=== PATIENT | female | born 1980 | race Caucasian/White ===

== ENCOUNTER → 2025-05-23 | Outpatient (CLI) | payer OTHER, SELFPAY ==
--- OUTSIDE RECORDS SUMMARY | 2025-05-23 21:40 | XMS RPT_ITS | CCD ---
Author Organization [facility] Care Team Providers Care Neon Sign Mechanic Name Role Phone Dimas Grimm Unavailable Unavailable UNKNOWN, PROVIDER Unavailable Unavailable You Khan Unavailable Unavailable Ayan Sena Unavailable Unavailable UNKNOWN, PROVIDER Unavailable Unavailable You Khan Unavailable Unavailable ZACK COOLEY Unavailable Unavailable TAMEKA SARAVIA Unavailable Unavailable NO PRIMARY CARE, Unavailable Unavailable MILENA WHITE Unavailable Unajordyi EVANS Nunez Unavailable Unavailable NO PRIMARY CARE, Unavailable Unavailable [facility] Primary Care Provider Unav ailable TAMEKA SARAVIA Attending Unavailable TAMEKA SARAVIA Referring Unavailable INC, [facility] Primary Care Unavailable YOU KHAN Attending Unavailable You Khan DO Primary Care Provider NO FAMILY PHYSICIAN, 837 Primary Care Unavail able Jasper VALENZUELA, Sandhya Attending Physician Medications Current Medications Medication Drug Class(es) Dates Sig (Normalized) Sig (Original) zolpidem tartrate 5 mg oral tablet (7 sources) gamma-Aminobutyri c Acid-ergic Agonist Start: 04-22-2025 End: 04-22-2025 take 1 tablet by mouth at bedtime Zolpidem 5 mg tablet Active 5 mg PO AT BEDTIME 10 April 22, 2025 4:03pm insomnia Complies with drug therapy Start: 08-01-2022 take 1 tablet by once daily for sleep zolpidem (Ambien) 5 MG tablet Indications: Primary insomnia take 1 tablet by mouth NIGHTLY if needed FOR SLEEP FOR UP TO 10 DAYS 10 tablet 0 08/01/2022 Active Start: 09-30-2021 End: 07-26-2022 take 1 tablet by mouth once daily for sleep zolpidem (Ambien) 5 MG tablet Indications: Primary insomnia take 1 tablet by mouth NIGHTLY if needed FOR SLEEP FOR UP TO 10 DAYS Strength: 5 mg 10 tablet 0 07/26/2022 07/26/2022 Discontinued (Reorder) Completed/Discontinued Medications Medication Drug Class(es) Dates Sig (Normalized) Sig (Original) citalopram 10 mg oral tablet (13 sources) Serotonin Reuptake Inhibitor Start: 01-05-2024 End: 04-22-2025 take 1 tablet by mouth once daily Citalopram 20 mg tablet Active 20 mg PO DAILY 30 April 22, 2025 4:03pm Complies with drug therapy Start: 01-05-2024 End: 04-22-2025 take 1 tablet by mouth once daily Citalopram 10 mg tablet Discontinued 10 mg PO DAILY 90 January 05, 2024 3:57pm April 22, 2025 3:59pm Start: 05-11-2022 End: 07-26-2022 take 1 tablet by mouth once daily citalopram (CeleXA) 20 MG tablet Take 1 tablet (20 mg) by mouth daily. 90 tablet 1 07/26/2022 Active Start: 05-11-2022 End: 07-26-2022 take 1 tablet by mouth once daily citalopram (CeleXA) 10 MG tablet Take 1 tablet (10 mg) by mouth daily. 90 tablet 1 07/26/2022 Active Problems Active Problems Problem Classification Problem Date Documented Da te Episodic/Chronic Anxiety disorders (6 sources) Anxiety; Translations: [Anxiety disorder, unspecified] Onset: 02-05-2021 04-25-2022 Chronic Miscellaneous mental health disorders (6 sources) Primary insomnia; Translations: [Primary insomnia] Onset: 2017 04-25-2022 Chronic Other ear and sense organ disorders (2 sources) Unspecified hearing loss, unspecified ear; Translations: [Unspecified hearing loss, unspecified ear] Onset: 08-16-2017 Chronic Other screening for suspected conditions (not mental disorders or infectious disease) (4 sources) Patient encounter status; Translations: [Encounter for screening mammogram for malignant neoplasm of breast] Onset: 05-19-2023 05-19-2023 Episodic Residual codes; unclassified (1 source) Insomnia; Translations: [Insomnia, unspecified] 04-22-2025 Episodic Past or Other Problems Problem Classification Problem Date Documented Da te Episodic/Chronic Other ear and sense organ disorders (6 sources) Tinnitus, unspecified ear; Translations: [Tinnitus, right ear] Onset: 08-06-2017 Episodic Other infections; including parasitic (3 sources) History of glandular fever; Translations: [Personal history of other infectious and parasitic diseases] Onset: 01-30-2018 04-25-2022 Episodic Otitis media and related conditions (2 sources) Acute serous otitis media, right ear; Translations: [Acute serous otitis media, right ear] Onset: 08-06-2017 Episodic Residual codes; unclassified (4 sources) Family history of cancer of colon; Translations: [Family history of malignant neoplasm of digestive organs] Onset: 02-05-2021 04-25-2022 Episodic Residual codes; unclassified (3 sources) Family history of disorder; Translations: [Family history of epilepsy and other diseases of the nervous system] Onset: 08-17-2018 04-25-2022 Episodic Results Test Name Value Interpretation Reference Range Facility [facility] Physician Progress No romel 05-03-2025 [facility] Physician Progress Note LESA HINOJOSA :1980 Registration Date:04/29/2025 Assessment/Plan This Visit Diagnosis 1. Abnormal uterine bleeding (AUB)/(N93.9: Abnormal uterine and vaginal bleeding, unspecified) aygestin started use annual as followup Ordered: [facility] Follow - Up Appt [facility], 05/03/2025 22:25:00 EDT, 2 months Annual/ followup 2. Pelvic pressure in female/(R10.20: Pelvic and perineal pain unspecified side) Ordered: [facility] Follow - Up Appt [facility], 05/03/2025 22:25:00 EDT, 2 months Annual/ followup rectal pressure/bloat she is making appointment for GI Medication Reconciliation What How Much When Why Instructions New norethindrone (Aygestin 5 mg oral tablet) 1 Tabs Oral DAILY Abnormal uterine bleeding (AUB) Refills: 1 Ordering Physician: TAMEKA TORO Pickup at [facility]/pharmacy #[id number] Unchanged betamethasone-clotrimaz ole topical (Lotrisone 1%-0.05% topical cream) 1 Application Topical TWICE A DAY Vulvar irritation Ordering Physician: TAMEKA TORO Unchanged citalopram (citalopram 20 mg oral tablet) Ordering Physician: YOU KHAN Unchanged multivitamin 1 Tabs Oral DAILY Pharmacy Information [id number]: [address] [place], [place] [id number] [phone] Chief Complaint u/s f/u for pelvic pressure and AUB lmp: 04/12/25 happening since December cramping with period History of Present Illness 44 yo hasn't been seen in 2 years last reported no problems called with pelvic pressure and AUB she reports normal cycles just sometime brown and sometimes red started in December random cramping throughout cycle and at times rectal pressure- no rectal bleeding she feels bloating she reports at times heavy no diet or med changes cramping on and going normal pelvic u/s today using condoms start aygestin on day #3 r structure is normal but sometimes it is function will try to pause cycle/ovulation and see if better she is aware she needs a colonoscopy hcg urine- neg Physical Exam Vitals & Measurements BP: 120/70 HT: 168 cm WT: 76 kg BMI: 26.93 LMP: 04/12/2025 00:00 EDT Depression Screening Scores Initial Depression Screen Score: 0 (04/29/25 15:20:00) Fall Risk Assessment Is the patient ambulatory (mobile): Yes (04/29/25 15:20:00) Have you had a fall within the past: No (04/29/25 15:20:00) Have you had 2 or more falls in the past: No (04/29/25 15:20:00) 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 Aragon Comment: Bed rest and GTN Problem List/Past Medical History Ongoing No chronic problems Historical Procedure/Surgical History Last pap-neg w/neg HPV: 11/28/19 Medications betamethasone-clotrimaz ole topical(Lotrisone 1%-0.05% topical cream), 1 rebeka, Topical, BID citalopram(citalopram 20 mg oral tablet) multivitamin, 1 tabs, ORAL, DAILY norethindrone(Aygestin 5 mg oral tablet), 5 mg= 1 tabs, ORAL, DAILY, 1 refills Allergies No Known Medication Allergies Social History Alcohol - Denies Alcohol Use Sexual Sexually active:Yes Uses condoms:Yes Substance Abuse - Denies Substance Abuse Tobacco Use:Never (less than 100 in lifetime) Family History Colon cancer..: Grandfather. Family Member(s) Relationship: Grandfather, Name: Maternal, Age: unknown Electronically Co-Signed by: TAMEKA TORO on 05/03/2025 22:28 EDT Normal [facility] DBT Breast - bilateral anditiffanie eli 05-20-2023 No mammographic evidence of malignancy. ASSESSMENT: Category 1 Negative RECOMMENDATION: Routine screening mammogram in 1 year. Bilateral CANCER RISK ASSESSMENT: This risk assessment is based on patient provided information collected in a risk survey taken at the time of this examination. LIFETIME BREAST CANCER RISK: Jackieck: 11.86% - If greater than or equal to 20%, consider annual mammogram and annual screening Breast MRI or follow up in high risk clinic. Is the patient at elevated risk based on the HBOC criteria? NCCN HBOC Guidelines: 0% (Hereditary Breast and Ovarian Cancer) - If 100%, consider genetic counseling and testing with high risk follow up. Is the patient at elevated risk based on the Dailey Syndrome criteria? NCCN Dailey: 0% - If 100%, consider genetic counseling and testing with high risk follow up. Report Dictated on Electronically Signed By: Rj Joyner MD Electronically Signed Date/Time: 05/20/2023 11:40 AM [facility] [email or web address] Patient Name: LESA HARDY : 1980 Exam Date/Time: 05/19/2023 14:16 Procedure: BI MAMMOGRAM SCREENING TOMOSYNTHESIS BILATERAL Ordering Provider: SARAVIA MEGHAN Reason For Exam: Z12.31 Image views: 2D Bilateral CC and MLO views were acquired. 3D Bilateral CC and MLO views were acquired. Images were reviewed with CAD. Markings on images: BB's = Nipples; skin lesions Open [place] = Palpable Line = Scar COMPARISON: None. Baseline examination. TISSUE DENSITY: BIRADS C - The breast tissue is heterogeneously dense, which could obscure underlying abnormalities. FINDINGS: No suspicious masses, architectural distortions or suspiciously clustered microcalcifications are identified. There is no evidence of skin thickening or nipple retraction. [facility] Enma Joyner MD - 05/20/2023 [facility] Name[facility] 1980 [id number] Exam Date/Time: 05/19/2023 14:16 Procedure: BI MAMMOGRAM SCREENING TOMOSYNTHESIS BILATERAL Ordering Provider: SARAVIA MEGHAN Reason For Exam: Z12.31 Image views: 2D Bilateral CC and MLO views were acquired. 3D Bilateral CC and MLO views were acquired. Images were reviewed with CAD. Markings on images: BB's = Nipples; skin lesions Open [place] = Palpable Line = Scar COMPARISON: None. Baseline examination. TISSUE DENSITY: BIRADS C - The breast tissue is heterogeneously dense, which could obscure underlying abnormalities. FINDINGS: No suspicious masses, architectural distortions or suspiciously clustered microcalcifications are identified. There is no evidence of skin thickening or nipple retraction. IMPRESSION: No mammographic evidence of malignancy. ASSESSMENT: Category 1 Negative RECOMMENDATION: Routine screening mammogram in 1 year. Bilateral CANCER RISK ASSESSMENT: This risk assessment is based on patient provided information collected in a risk survey taken at the time of this examination. LIFETIME BREAST CANCER RISK: Tova: 11.86% - If greater than or equal to 20%, consider annual mammogram and annual screening Breast MRI or follow up in high risk clinic. Is the patient at elevated risk based on the HBOC criteria? NCCN HBOC Guidelines: 0% (Hereditary Breast and Ovarian Cancer) - If 100%, consider genetic counseling and testing with high risk follow up. Is the patient at elevated risk based on the Dailey Syndrome criteria? NCCN Dailey: 0% - If 100%, consider genetic counseling and testing with high risk follow up. Report Dictated on Electronically Signed By: Rj Joyner MD Electronically Signed Date/Time: 05/20/2023 11:40 AM EST [facility] DBT Breast - bilateral scree ningOrdered By: Enma Joyner on 05-20-2023 [facility] Work Phone: DBT Breast - bilateral scree graygon 05-19-2023 Radiology Study observation (narrative) [facility] Office Visiton 07-26-2022 Follow-up visit [id number] Catracho Hinojosa 1980 F Date Provider Department Center 07/26/2022 [id number] SNYDER [facility] Family History Problem Relation Age of Onset No Known Problems Sister High Blood Pressure Father Colon cancer Maternal Grandfather No Known Problems Sister Family Status - Relation Status Age at Sister Alive Father Alive Maternal Grandfather Other Sister Alive Mother Alive Level of Service:66000 FL OFFICE/OUTPATIENT ESTABLISHED LOW MDM 20-29 MIN Reason for Visit and Comments: Follow-up [158974] - 6 month med check Normal [facility] Progress Noteon 07-26-2022 Progress Note Subjective: Patient ID: Lesa Hinojosa is a 41 y.o. female. 41-year-old female with chronic anxiety presents to the office for checkup. Celexa current dose has been effective. She does have difficulty sleeping at times. Would like a prescription for Ambien. She will only take it short-term. Review of Systems Overall has been feeling well. Celexa has always been prescribed for anxiety. Denies being depressed. Patient does have an appointment for her well woman examination next month. Patient has never had a mammogram. No chest pain or shortness of breath. No bowel or bladder complaints. Patient does have a family history of colon cancer that being her grandfather. He in his 80s Objective: Physical Exam Neck: Thyroid: No thyromegaly. Cardiovascular: Rate and Rhythm: Normal rate and regular rhythm. Heart sounds: No murmur heard. Pulmonary: Breath sounds: Normal breath sounds. Abdominal: Palpations: There is no mass. Tenderness: There is no abdominal tenderness. Musculoskeletal: Right lower leg: No edema. Left lower leg: No edema. Comments: Pulses present both feet. Lymphadenopathy: Cervical: No cervical adenopathy. Skin: Findings: No rash. Neurological: Mental Status: She is alert. Psychiatric: Comments: Patient is a very pleasant. Thought process appropriate. BP 104/69 Pulse 69 Temp 36.2 ?C (97.1 ?F) (Temporal) Ht 5' 6" (1.676 m) Wt 162 lb 9.6 oz (73.8 kg) SpO2 100% BMI 26.24 kg/m? No Known Allergies Current Outpatient Medications on File Prior to Visit Medication Sig Dispense Refill [DISCONTINUED] citalopram (CeleXA) 10 MG tablet Take 1 tablet (10 mg) by mouth in the morning. 90 tablet 0 [DISCONTINUED] citalopram (CeleXA) 20 MG tablet Take 1 tablet (20 mg) by mouth in the morning. 90 tablet 0 [DISCONTINUED] zolpidem (Ambien) 5 MG tablet take 1 tablet by mouth NIGHTLY if needed FOR SLEEP FOR UP TO 10 DAYS No current facility-administered medications on file prior to visit. Patient Active Problem List Diagnosis Primary insomnia History of infectious mononucleosis Anxiety Family history of colon cancer Family history of insomnia Social History Tobacco Use Smoking status: Never Smokeless tobacco: Never Substance Use Topics Alcohol use: Yes No past surgical history on file. Family History Problem Relation Name Age of Onset No Known Problems Sister High Blood Pressure Father Colon cancer Maternal Grandfather No Known Problems Sister Assessment / Plan: Diagnosis Plan 1. Primary insomnia zolpidem (Ambien) 5 MG tablet prn Ambien . Oarrs report reviewed 2. Anxiety Controlled with Celexa 3. Family history of colon cancer Normal [facility] 36on 06-08-2022 36 Pt is scheduled 07/26/22 Normal [facility] MRI Brain w/ + w/o Contrasto n 08-16-2017 MRI Brain w/ + w/o Contrast Patient Name: LESA HINOJOSA MRI Exam Date/Time 08/16/2017 11:08:18 EST Exam MRI Brain w/ + w/o Contrast Ordering Physician DIMAS GRIMM Accession Number [id number] CPT4 Codes 10541 () Reason For Exam hearing loss tinitus Report MRI BRAIN AND INTERNAL AUDITORY CANALS WITH AND WITHOUT CONTRAST CLINICAL: Hearing loss, tinnitus Axial diffusion, T2 and FLAIR imaging of the brain, high-resolution axial T2, axial T1 and postcontrast axial and coronal T1 imaging of the internal auditory canals and postcontrast axial T1 imaging of the entire brain were obtained. The patient received 11 mL of gadolinium intravenously. COMPARISON: MRI brain December 24, 2008 FINDINGS: The diffusion-weighted imaging is without evidence of acute ischemic injury. There is no hydrocephalus. The basilar cisterns are patent. No abnormal brain parenchymal edema, midline shift or significant mass effect is noted. The brain parenchymal signal intensity shows a nonspecific focus of hyperintense T2 and FLAIR signal intensity within the right frontoparietal distribution, new since previous, and otherwise appears unremarkable. Orbits are symmetric. Mild scattered mucosal thickening within the paranasal sinuses. No sizable extra-axial fluid collections. The internal auditory canals are normal in caliber. The bilateral 7/8 nerve complexes appear within limits. No abnormal enhancement of either internal auditory canal distribution is seen. No abnormal mass or enhancement within either cerebellopontine angle cistern. Postcontrast imaging of the brain, no abnormal brain parenchymal or meningeal enhancement is identified. Incidental note is made of an anterior left temporal lobe development of venous anomaly (venous angioma). IMPRESSION: No evidence of abnormal mass or enhancement involving either internal auditory canal distribution. 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 Report Dictated on Final Dictating Physician: ELKIN CRANE Signed Date and Time: 08/16/2017 1:05 pm Signed by: ELKIN CRANE Transcribed Date and Time: 08/16/2017 1:06 Normal [facility] Vital Signs Date Time Vital Sign Value Performing Clinician Facility 04-22-2025 15:59-0400 Body height 165.1 cm Sandhya VALENZUELA Work Phone: [facility] 04-22-2025 15:59-0400 Body mass index (BMI) [Ratio] 27.4 kg/m2 Sandhya VALENZUELA Work Phone: [facility] 04-22-2025 15:59-0400 Body temperature 97.5 [degF] Sandhya Hutchinson GREEN PIPEFITTER-C Work Phone: [facility] 04-22-2025 15:59-0400 Body weight 74.84 kg Sandhya Hutchinson GREEN PIPEFITTER-C Work Phone: [facility] 04-22-2025 15:59-0400 Diastolic blood pressure 70 mm[Hg] Sandhyadyllan PenalozaHutchinson GREEN PIPEFITTER-C Work Phone: [facility] 04-22-2025 15:59-0400 Heart rate 78 /min Sandhya Hutchinson GREEN PIPEFITTER-C Work Phone: [facility] 04-22-2025 15:59-0400 Respiratory rate 18 /min Sandhyadyllan Hutchinson GREEN PIPEFITTER-C Work Phone: [facility] 04-22-2025 15:59-0400 SaO2% (BldA) [Mass fraction] 97 % Sandhya Hutchinson GREEN PIPEFITTER-C Work Phone: [facility] 04-22-2025 15:59-0400 Systolic blood pressure 118 mm[Hg] Sandhya Hutchinson GREEN PIPEFITTER-C Work Phone: [facility] 05-19-2023 13:58-0500 Body height 167.6 cm Tameka Talya DO Work Phone: [facility] 05-19-2023 13:58-0500 Body mass index (BMI) [Ratio] 26.15 kg/m2 Tameka Talya DO Work Phone: [facility] 05-19-2023 13:58-0500 Body weight 73.48 kg Tameka Talya DO Work Phone: [facility] 07-26-2022 10:05-0500 Body height 167.6 cm You Khan DO Work Phone: [facility] 07-26-2022 10:05-0500 Body mass index (BMI) [Ratio] 26.24 kg/m2 You Khan DO Work Phone: [facility] 07-26-2022 10:05-0500 Body temperature 97.11 [degF] You Khan DO Work Phone: [facility] 07-26-2022 10:05-0500 Body weight 73.75 kg You Khan DO Work Phone: [facility] 07-26-2022 10:05-0500 Diastolic blood pressure 69 mm[Hg] You Khan DO Work Phone: [facility] 07-26-2022 10:05-0500 Heart rate 69 /min You Khan DO Work Phone: [facility] 07-26-2022 10:05-0500 SaO2% (BldA) [Mass fraction] 100 % You Khan DO Work Phone: [facility] 07-26-2022 10:05-0500 Systolic blood pressure 104 mm[Hg] You Khan DO Work Phone: [facility] Encounters Encounter Date Encounter Type Care Provider Facility Start: 04-29-2025 End: 04-29-2025 ambulatory 837 NO FAMILY PHYSICIAN Facility:[facility] Start: 04-22-2025 End: 04-22-2025 ambulatory Sandhya VALENZUELA Work Phone: [facility] Start: 05-19-2023 End: 05-20-2023 ambulatory TAMEKA SARAVIA [facility] Start: 05-19-2023 End: 05-19-2023 Subsequent hospital visit by physician Tameka Saravia DO Work Phone: [facility] Comment on above: Encounter for screen ing mammogram for malignant neoplasm of breast Start: 05-13-2023 Transcribe Orders [facility]ame[facility] crockett DO [facility] Comment on above: Encounter for screen ing mammogram for malignant neoplasm of breast (Primary Dx) Start: 07-26-2022 End: 07-26-[address] [facility] Start: 07-26-2022 End: 07-26-2022 Office outpatient visit 15 minutes You Tiffanie Richdiana DO Work Phone: [facility] Comment on above: Primary insomnia (Pr imary Dx); Anxiety; Family history of colon cancer Start: 05-30-2018 Patient encounter procedure MILENA JACKSON [facility] Start: 12-13-2017 End: 12-13-2017 Patient encounter procedure ZACK COOLEY [facility] Start: 08-16-2017 Ambulatory Dimas Ben [facility] Start: 08-06-2017 Emergency department patient visit Ayan Sena [facility] Procedures Date Procedure Procedure Detail Performing Clinician Start: 05-19-2023 Mammography Tameka crockett DO Work Phone: Plan of Treatment Date Care Activity Detail Author Start: 2039 RSV Immunization age d 60 or older (1 - 1-dose 60+ series) RSV Immunization aged 60 or older (1 - 1-dose 60+ series) [facility] Start: 12-17-2029 DTaP/Tdap/Td Vaccine s (3 - Td or Tdap) DTaP/Tdap/Td Vaccines (3 - Td or Tdap) [facility] Start: 09-25-2029 Zoster Vaccines (1 of 2) Zoster Vacc el (1 of 2) [facility] Start: 05-19-2024 Screening for malign ant neoplasm of breast Mammogram [facility] Start: 03-11-2023 Influenza vaccination Influenza Vacc ine (#1) [facility] Start: 03-11-2022 Influenza vaccination Influenza Vacc ine (#1) [facility] Start: 2019 Screening for malign ant neoplasm of breast Mammogram [facility] Start: 09-25-2009 Screening for malign ant neoplasm of cervix [facility] Start: 09-25-2000 Screening for malign ant neoplasm of cervix Pap Smear [facility] Start: 09-25-1997 Diabetes mellitus screening Diabetes Screening [facility] Start: 09-25-1997 Hepatitis C screening Hepatitis C Sc reening [facility] Start: 1991 Depression Screening Depression Scre ening [facility] Start: 09-25-1980 MMR Vaccines (1 of 1 - Standard series) MMR Vaccines (1 of 1 - Standard series) [facility] Start: 03-28-1980 COVID-19 Vaccine (#1) COVID-19 Vacci ne (#1) [facility] Start: 1979 Hepatitis B Vaccines (1 of 3 - 3-dose series) Hepatitis B Vaccines (1 of 3 - 3-dose series) [facility] Start: 1980 HIV screening HIV Screening [facility] End: 05-19-2023 DBT Breast - bilateral screening [facility] Work Phone: Comment on above: Once for 1 Occurrenc es starting 05/19/2023 until 05/19/2023 Immunizations Immunization Date Immunization Notes Care Provider Fa cility 05-28-2020 influenza virus vacc ine, unspecified formulation You Khan DO Work Phone: [facility] 05-17-2018 influenza, injectabl e, quadrivalent, contains preservative You Khan DO Work Phone: [facility] 09-19-2009 tetanus toxoid, redu harjinder diphtheria toxoid, and acellular pertussis vaccine, adsorbed You Giovany DO Work Phone: [facility] Payers Date Payer Category Payer Unknown 2021 Unknown [id number] 1980 Unknown [id number] [id number] 1980 Unknown [id number] [id number] 1980 Unknown [id number] [id number] Unknown [id number] Unknown [id number] Social History Date Type Detail Facility Tobacco smoking stat us KSIS Never smoked tobacco [facility] Start: 02-05-2021 End: 05-19-2023 Alcohol intake Current drinker of alcohol (finding) [facility] Start: 1980 Sex Assigned At Female [facility] Start: 07-25-2022 Gender identity Identifies as female gender (finding) [facility] Start: 07-25-2022 Sexual orientation Heterosexual (fin ding) [facility] Start: 05-19-2023 History of Social function [facility] Start: 05-19-2023 [facility] Start: 07-16-2022 End: 07-26-2022 Exposure to SARS-CoV-2 (event) Not sure [facility] Tobacco smoking stat us KSIS Unknown if ever smoked [facility] Work Phone: Progress note 04-22-2025 Note Date & Type Note Facility 04-22-2025 Progress note Note Date/Time April 22, 2025 4:10pm [facility] [address] [place] [address] OFFICE VISIT Date of Service: 04/22/25 MR#: [id number] Acct: [id number] Name: LESA HINOJOSA Rep #: [id number] : 1980 Provider: BIANCA Hutchinson Age/Sex: 44/F Location: [facility] Status: Signed Intake Vital Signs 01/05/24 15:54 04/22/25 15:59 Height 5 ft 5 in 5 ft 5 in Weight: 165 lb BMI 27.4 BP 118/70 Blood Pressure Location Rt brachial Position Sitting Respiration 18 Temp 97.5 F L Temp Source Surface Pulse 78 Pulse Source Doppler Pulse Oximetry (%) 97 Oxygen Delivery Method room air Intake Visit Reasons: medication refills Accompanied by: Self Is patient in pain?: No Allergies No Known Allergies Allergy (Verified 01/05/24 15:55) Medications ?Medication ?Instructions ?Recorded ?Confirmed ?Type citalopram 20 mg tablet 20 mg PO DAILY #30 tabs 04/1004/22/25 Rx zolpidem 5 mg tablet 5 mg PO QHS insomnia #10 tab s 04/22/25 04/22/25 Rx Is last menstrual period known: Yes Last Menstrual Period: 04/12/25 Post menopausal: No Patient : No PFSH Medical History (Updated 04/22/25 @ 16:08 by Sandhya Hutchinson NP, [employer]) Insomnia Anxiety HPI HPI HPI HPI: LESA HINOJOSA, is a 44 F who presents to the office today for medication refills.Having issues with insomnia. Really tired but goes to bed and is wide awake She weaned herself off the 10 mg of the lexapro She now takes 20 mg ROS Const Constitutional: Positive for sleep problems and abnormal sleep pattern; No anorexia, body ache, chills, excessive sweating, fatigue, fever(s), frequent falls, headache(s), decreased energy, malaise, night sweats, snoring, weakness, weight change, change in appetite or other Eyes Eyes: No blurry vision, change in vision, double vision, discharge, dry eyes, bulging eyes, floaters, visual disturbances, eye pain, Light sensitivity, spots in vision, tunnel vision or other ENT ENT: No abnormal hearing, ear or mastoid pain, ear discharge, ear pressure, hearing loss, tinnitus, dizziness/vertigo, balance problems, nosebleed/epistaxis, nasal congestion, nasal obstruction, nose pain, sinus pressure, sinus pain, nasal discharge, post nasal drip, headache(s), facial pain, dental pain, dry mouth, difficulty swallowing, bad breath, hoarseness, lipswelling, mouth lesions, mouth pain, neck pain, sore throat, tongue swelling, throat swelling or other Resp Respiratory: No cough, change in phlegm color, chest congestion, excessive phlegm production, hemoptysis, pain on inspiration, shortness of breath, pain with cough, snoring, stridor, wheezing or other Cardio Cardiology: No chest pain at rest, chest pain with exertion, leg pain with exertion, excessive sweating, shortness of breath, dyspnea on exertion, generalized swelling, irregular heart rhythm, lightheadedness, orthopnea, radiating jaw, neck or arm pain, fast heart rate, slow heart rate, palpitations or other Gastro GI: No abdominal pain, No belching, No bloating, No change in bowel habits, No change in stool character, No coffee ground emesis, No constipation, No cramping, No diarrhea, No heartburn, No Difficulty Swallowing, No feeling full early, No excessive flatus, No incontinent of stools, No Vomiting blood/hematemesis, No Blood in stool, No loose stools, No Black,tarry stools, Nonausea/dyspepsia, No pain with swallowing, No vomiting, No hemorrhoids, No rectal pain and No other Genitourinary: No difficulty urinating, burning urination, painful urination, urinary frequency, urinary urgency or blood in urine Musc Musculoskeletal: No abnormal gait, joint pain, back pain, deformity, joint swelling, limited range of motion, loss of height, muscle cramps, muscle weakness, decreased muscle mass, myalgias, neck pain, numbness, radiating pain into limb, stiffness, tingling, restless legs, leg pain with exertion or other Skin Skin: No acne, hair loss in leg, change in hair, nail changes, boil, change in skin color, dry skin, redness, excessive hair growth, yellowing of the eye, lesions, itchy eyes, rash, skin pain, skin ulcer, sores, skin swelling, wounds or other Breast Breast: No other Neuro Neurology: No abnormal gait, abnormal hearing, abnormal movements, abnormal speech, behavioral changes, confusion, unsteady gait/balance, dizziness, weakness, frequent falls, headache(s), lack of coordination, loss of vision, memory loss, numbness, tingling, visual disturbances, restless legs, fainting, tremor(s) or other Psych Psychiatric: Positive for abnormal sleep pattern, No lack of enjoyment, No anxiety, No behavioral changes, No change in appetite, No confusion, No depression, No difficulty concentrating, No hopelessness, No irritability, No memory loss, No mood swings, No panic attacks, No paranoia, No Thoughts of harming yourself/Others, No hallucinations and No other Endo Endo: No excessive sweating, No fatigue and No other Aller/Imm Allergy/Immunologic: No itchy eyes, lip swelling, throat swelling, tongue swelling or wheezing Exam Const Constitutional: Yes cooperative and Yes healthy appearing Orientation: Yes alert, awake and oriented x3 HENMT Head: Yes normocephalic Ear: Yes hearing grossly normal bilaterally TM-Right: normal TM-Left: normal Pinna-Right: within normal limits Pinna-Left: within normal limits Face: Yes normal facial exam Nose: Yes external nose normal Mouth: Yes oral mucosae normal Neck Neck: normal visual inspection Thyroid: thyroid normal Eyes General: Yes appearance normal, both eyes and all related structures Chest Chest palpation & inspection: Yes normal inspection of the chest Resp Effort & Inspection: No stridor Auscultation: Yes clear to auscultation bilaterally Cardio Palpitation: Yes normal PMI Rate: Yes regular rate Rhythm: Yes regular rhythm GI Inspection: Yes normal to inspection Auscultation: Yes normal bowel sounds Palpation: Yes soft and no hepatosplenomegaly Rectal Exam: No hemorrhoids General: Yes bladder normal to inspection and bladder normal to palpation; No CVA tenderness Bimanual Exam- Vagina & Uterus: bladder normal to palpation Musc Cervical Spine: Yes cervical ROM normal Thoracic/Lumbar Spine: Yes thoracic and lumbar spine normal to inspection Skin General: no rashes or lesions noted Lesions: Yes no lesions Extrem General: Yes normal to inspection Neuro General: Yes CN's II-XI intact bilaterally, alert, oriented x3 and deep tendon reflexes 2+ bilaterally Cranial Nerves: Yes CN's II-XI intact bilaterally Speech: Yes speech normal Gait: Yes normal gait Motor: No weakness Psych Appearance: Positive grossly normal Mood: Positive congruent mood Affect: Positive normal affect Speech and Movement: Yes speech and movement normal Attitude: Yes cooperative Thought Process: Yes normal Thought Content: Yes normal Judgment: Yes judgment good Coding Level of Care Code Off vis,est,level 4 Diagnoses Insomnia due to other mental disorder F51.05; F99 Insomnia type: due to other mental disorder Anxiety F41.9 Assessment and Plan Assessment and Plan (1) Insomnia: Status: Acute Qualifiers: Insomnia type: due to other mental disorder Qualified Code(s): F51.05 -Insomnia due to other mental disorder; F99 - Mental disorder, not otherwise specified (2) Anxiety: Status: Acute Medications: New zolpidem 5 mg PO QHS 10 tabs 5RF insomnia Refilled citalopram 20 mg PO DAILY 30 tabs 12RF Patient Instructions: TAke the meds as prescribe and follow up as needed 04/22/25 1610 <Electronically signed by Sandhya Yu on [employer]TER [employer]-C> Date _ Sandhya Hutchinson NP [employer] CC: ~ [facility] Work Phone: Evaluation note 04-22-2025 Note Date & Type Note Facility 04-22-2025 Evaluation note Diagnosis Onset Date Resolution Anxiety acute April 22, 2025 3:52pm Insomnia acute April 22, 2025 3:52pm [facility] Work Phone: Progress note 04-22-2025 Note Date & Type Note Facility 04-22-2025 Progress note [facility] History of Present illness Narrative 07-26-2022 You Khan, DO - 07/26/2022 10:10 AM EST Note Date & Type Note Facility 07-26-2022 History of Presen t illness Narrative Subjective: Patient ID: Lesa Hinojosa is a 41 y.o. female. 41-year-old female with chronic anxiety presents to the office for checkup. Celexa current dose has been effective. She does have difficulty sleeping at times. Would like a prescription for Ambien. She will only take it short-term. Review of Systems Overall has been feeling well. Celexa has always been prescribed for anxiety. Denies being depressed. Patient does have an appointment for her well woman examination next month. Patient has never had a mammogram. No chest pain or shortness of breath. No bowel or bladder complaints. Patient does have a family history of colon cancer that being her grandfather. He in his 80s Objective: Physical Exam Neck: Thyroid: No thyromegaly. Cardiovascular: Rate and Rhythm: Normal rate and regular rhythm. Heart sounds: No murmur heard. Pulmonary: Breath sounds: Normal breath sounds. Abdominal: Palpations: There is no mass. Tenderness: There is no abdominal tenderness. Musculoskeletal: Right lower leg: No edema. Left lower leg: No edema. Comments: Pulses present both feet. Lymphadenopathy: Cervical: No cervical adenopathy. Skin: Findings: No rash. Neurological: Mental Status: She is alert. Psychiatric: Comments: Patient is a very pleasant. Thought process appropriate. BP 104/69 Pulse 69 Temp 36.2 C (97.1 F) (Temporal) Ht 5' 6" (1.676 m) Wt 162 lb 9.6 oz (73.8 kg) SpO2 100% BMI 26.24 kg/m No Known Allergies Current Outpatient Medications on File Prior to Visit Medication Sig Dispense Refill [DISCONTINUED] citalopram (CeleXA) 10 MG tablet Take 1 tablet (10 mg) by mouth in the morning. 90 tablet 0 [DISCONTINUED] citalopram (CeleXA) 20 MG tablet Take 1 tablet (20 mg) by mouth in the morning. 90 tablet 0 [DISCONTINUED] zolpidem (Ambien) 5 MG tablet take 1 tablet by mouth NIGHTLY if needed FOR SLEEP FOR UP TO 10 DAYS No current facility-administered medications on file prior to visit. Patient Active Problem List Diagnosis Primary insomnia History of infectious mononucleosis Anxiety Family history of colon cancer Family history of insomnia Social History Tobacco Use Smoking status: Never Smokeless tobacco: Never Substance Use Topics Alcohol use: Yes No past surgical history on file. Family History Problem Relation Name Age of Onset No Known Problems Sister High Blood Pressure Father Colon cancer Maternal Grandfather No Known Problems Sister Assessment / Plan: Diagnosis Plan 1. Primary insomnia zolpidem (Ambien) 5 MG tablet prn Ambien . Oarrs report reviewed 2. Anxiety Controlled with Celexa 3. Family history of colon cancer documented in this encounter [facility] Evaluation note Note Date & Type Note Facility Evaluation note Diagnosis Encounter for screening mammogram for malignant neoplasm of breast documented in this encounter [facility] Evaluation note Note Date & Type Note Facility Evaluation note Diagnosis Encounter for screening mammogram for malignant neoplasm of breast- Primary Encounter for screening mammogram for malignant neoplasm of breast documented in this encounter [facility] Evaluation note Note Date & Type Note Facility Evaluation note Diagnosis Primary insomnia- Primary Persistent disorder of initiating or maintaining sleep Anxiety Anxiety state, unspecified Family history of colon cancer Family history of malignant neoplasm of gastrointestinal tract documented in this encounter [facility] Reason for referral (narrative) Note Date & Type Note Facility Reason for referral (narrative) No reason for referral information available [facility] Work Phone: Summary Purpose Family History No Family History Records FoundNo Family History Records FoundNo Family History Records FoundNo Family History Records FoundNo Family History Records Found Advance Directives No Advanced Directives Records FoundNo Advanced Directives Records FoundNo Advanced Directives Records FoundNo Advanced Directives Records FoundNo Advanced Directives Records Found Chief Complaint and Reason for Visit Chief Complaint Admit Date medication refills April 22, 2025 3 :52pm Reason for Visit Admit Date Anxiety April 22, 2025 3 :52pm Insomnia April 22, 2025 3 :52pm Additional Source Comments INFORMATION SOURCE (unrecogn ized section and content) DATE CREATED AUTHOR 01/02/2018 [facility] DATE CREATED AUTHOR AUTHOR'S ORGANIZ ATION 06/19/2018 [facility] DATE CREATED AUTHOR AUTHOR'S ORGANIZ ATION 05/21/2023 [facility] DATE CREATED AUTHOR AUTHOR'S ORGANIZ ATION 05/05/2025 [facility] Care Teams (unrecognized sec tion and content) Neon Sign Mechanic Relationship Specialty Start Date End Date [facility] [address] [place] [address] PCP - General 05/13/23 Neon Sign Mechanic Relationship Specialty Start Date End Date [facility] [address] [place] [address] PCP - General 05/13/23 Neon Sign Mechanic Relationship Specialty Start Date End Date You Khan, DO [address] [place] [address] PCP - General 06/18/16 Team Status: Active Member Role/Relationship Status Dates Dr. Eduardo Poon MD Primary care physician Chapis saucedo Team Status: Inactive Member Role/Relationship Status Dates Sandhya Hutchinson GREEN PIPEFITTER, [employer]-C Attending physician Active Start: April 22, 2025 End: April 22, 2025 Reason for Visit (unrecogniz ed section and content) Reason Comments Follow-up 6 month med check Goals (unrecognized section and content) Goals may be documented in a n alternate section FOR RECORDS PERTAINING TO PATIENTS WHO ARE OR HAVE BEEN ENROLLED IN A CHEMICAL DEPENDENCY/SUBSTANCEABUSE PROGRAM, SOME INFORMATION MAY BE OMITTED. This clinical summary was aggregated from multiple sources. Caution should be exercised in using it in the provision of clinical care. This summary normalizes information from multiple sources, and as a consequence, information in this document may materially change the coding, format and clinical context of patient data. In addition, data may be omitted in some cases. CLINICAL DECISIONS SHOULD BE BASED ON THE PRIMARY CLINICAL RECORDS. [employer] provides no warranty or guarantee of the accuracy or completeness of information in this document.
[2025-05-23 22:25] LABS: Hematocrit 40.2 % (37-47); Hemoglobin 13.3 g/dL (12.0-15.0); Immature Granulocytes Count 0.020 X10^3/uL (0.0-0.0); Mean Corp Hgb Conc 33.1 g/dL (32-36); Mean Corpuscular Volume 92.0 fL (81-99); Mean Platelet Vol. 12.5 fl (6.2-12.0); NRBC Flagged by Analyzer 0 % (0-5); Platelet Count 204 K/mm3 (150-450); RBC Distribution Width CV 12.2 % (11.6-14.6); RBC Distribution Width SD 40.7 fl (35.1-43.9); Red Blood Count 4.37 M/mm3 (4.2-5.4); White Blood Count 7.9 K/mm3 (4.4-11.0)
[2025-05-23 22:47] LABS: AST(SGOT) 23 U/L (<=31); Alanine Aminotransfer ALT/SGPT 19 U/L (<=34); Albumin, Serum 4.4 g/dL (3.5-5.0); Alkaline Phosphatase 60 U/L (35-104); Anion Gap 8 (5-15); BUN 21 mg/dL (4-19); BUN/Creat Ratio 29.1 RATIO (10-20); Calcium,Total 9.4 mg/dL (7.6-11.0); Carbon Dioxide 26.2 mmol/L (21.0-32.0); Chloride 104 mmol/L (98-108); Cholesterol 170 mg/dL (<=200); Globulin 2.5 g/dL (2.2-4.2); Glucose 95 mg/dL (70-99); Lipase 39 U/L (13-75); Low Density Lipoprotein Calc. 76 mg/dL; Potassium 4.3 mmol/L (3.3-5.1); Triglycerides 114 mg/dL; Very Low Density Lipoprotein 23 mg/dL (5-40); cholesterol:hdl ratio screen 2.29
== END | disposition home or self-care (01) ==
PROVIDERS: PCP Nurse Practitioner; Referring Provider Nurse Practitioner; Visit Provider Nurse Practitioner
DX: R10.30 Lower abdominal pain, unspecified (principal); F51.05 Insomnia due to other mental disorder; F99 Mental disorder, not otherwise specified; R10.20 Pelvic and perineal pain unspecified side
CPT/HCPCS: 80053; 80061; 83690; 84443; 85025; 87086; 87088; 87186